=== PATIENT | female | born 1955 | race African-American/Black ===

== ENCOUNTER 2018-04-04 08:14 | Emergency (ER) | payer BC ==
[~2018-04-04] VITALS: Ht 167.6 cm; Wt 96.2 kg
--- OUTSIDE RECORDS SUMMARY | 2018-04-04 08:16 | XMS REPORT ---
Author Author [facility] Address Unknown Phone Unavailable Care Team Providers Care Flight Surveyor Name Role Phone SOCORRO VILLATORO Unavailable Unavailable Problems This patient has no known problems. Allergies, Adverse Reactions, Alerts This patient has no known allergies or adverse reactions. Medications This patient has no known medications. Results Test Description Test Time Test Comments Text Results Atomic Results Result Comments TISSUE EXAM 2018-01-24 14:16:00 Surgical Pathology Report Case: [id number] Authorizing Provider: Zahida Villatoro, Collected: 01/13/2018 1147 MD Ordering Location: [facility] PERIOPERATIVE Received: 01/13/2018 1226 SERVICES Pathologist: Aditi Mancera MD Specimen: Fem oral Head, Right Hip RIGHT FEMORAL HEAD, EXCISION: - DEGENERATIVE JOINT DISEASE/OSTEOARTHRITIS - FOCAL CONTIGUOUS AVASCULAR NECROSIS - REACTIVE SYNOVIUM WITH OSTEOCARTILAGINOUS LOOSE BODY, 1 MM Signing Pathologist Direct Phone Line: [phone] signed by Aditi Mancera MD on 01/24/2018 at 2:16 PMMO/[id number] osteoarthritis of right hipRight femoral head Specimen is received in a fluidless container labeled with the patient's information and labeled "right femoral head" and consists of a dangelo-red spherical femoral head measuring 4 x 3.5 x 3.5 cm with sharply amputated base. The articular surface has distinct osteophyte formation with pitting and eburnation, and the femoral head is slightly distorted.Section code: A1, A2, bone submitted for decalcification; A3, soft tissue and bone submitted for decalcification. CG/ew The right femoral head sample shows osteoporotic bone with hematopoietic marrow and without atypia. There are some degenerative/reactive changes along the articular cartilage/eburnated surfaces. However, along this region, as well, there are features typical of avascular necrosis with a homogenized marrow and necrotic and distorted bone trabecular elements. Atypia is not noted. There is some reactive synovium with an occasional osteocartilaginous loose body. BASIC METABOLIC PANEL 2018-01-15 07:00:00 SODIUM (BEAKER) (test fdnb=989) 141 meq/L 136-145 POTASSIUM (BEAKER) (test zicp=077) 3.7 meq/L 3.5-5.1 CHLORIDE (BEAKER) (test qpxp=843) 109 meq/L 98-107 CO2 (BEAKER) (test dxxz=417) 27 meq/L 22-29 BLOOD UREA NITROGEN (BEAKER) (test mhtk=288) 10 mg/dL 7-21 CREATININE (BEAKER) (test qriu=524) 0.71 mg/dL 0.57-1.25 GLUCOSE RANDOM (BEAKER) (test psaz=755) 101 mg/dL 70-105 CALCIUM (BEAKER) (test vzhc=029) 8.8 mg/dL 8.4-10.2 EGFR (BEAKER) (test oyip=9125) 101 mL/min/1.73 sq m ESTIMATED GFR IS NOT ACCURATE CREATININE CLEARANCE IN PREDICTING GLOMERULAR FILTRATION RATE. ESTIMATED GFR IS NOT APPLICABLE FOR DIALYSIS PATIENTS. HEMOGLOBIN AND [id number] 06:39:00* Test Item Value Reference Range Comments HEMOGLOBIN (BEAKER) (test hjqw=352) 9.9 GM/DL 11.2-15.7 HEMATOCRIT (BEAKER) (test xwnp=612) 31.4 % 34.1-44.9 BASIC METABOLIC [id number] 05:36:00* Test Item Value Reference Range Comments SODIUM (BEAKER) (test acrs=581) 137 meq/L 136-145 POTASSIUM (BEAKER) (test wtyq=269) 4.0 meq/L 3.5-5.1 CHLORIDE (BEAKER) (test kufv=194) 108 meq/L 98-107 CO2 (BEAKER) (test jtqe=544) 25 meq/L 22-29 BLOOD UREA NITROGEN (BEAKER) (test wbnz=347) 22 mg/dL 7-21 CREATININE (BEAKER) (test bslc=027) 0.74 mg/dL 0.57-1.25 GLUCOSE RANDOM (BEAKER) (test awfa=436) 109 mg/dL 70-105 CALCIUM (BEAKER) (test nreq=467) 8.6 mg/dL 8.4-10.2 EGFR (BEAKER) (test pocl=9822) 96 mL/min/1.73 sq m ESTIMATED GFR IS NOT ACCURATE CREATININE CLEARANCE IN PREDICTING GLOMERULAR FILTRATION RATE. ESTIMATED GFR IS NOT APPLICABLE FOR DIALYSIS PATIENTS. HEMOGLOBIN AND [id number] 05:09:00* Test Item Value Reference Range Comments HEMOGLOBIN (WIL) (test yvii=041) 10.5 GM/DL 11.2-15.7 HEMATOCRIT (WIL) (test xaci=772) 32.3 % 34.1-44.9 RAD, PELVIS, 1 OR 2 [id number] 13:51:00Reason for exam:->post op total hip in PACUShould this be performed at the bedside?->YesFINAL REPORT AP pelvis, HISTORY: Arthroplasty COMPARISON: 01/13/2018 IMPRESSION:Right hip arthroplasty in place. Suspect alignment. No fractures. Signed: Lashell Minorort Verified Date/Time: 01/13/2018 13:51:31 Reading Location: [facility] Reading Room , PELVIS, 1 OR 2 [id number] 12:20:00Reason for exam:->RIGHT TOTAL HIP REPLACEMENTShould this be performed at the bedside?->YesFINAL REPORT Radiograph of the right hip Reason for exam: RIGHT TOTAL HIP REPLACEMENT Comparison: No priors Discussion: Patient is undergoing right hip total arthroplasty. An acetabular component, and a right femoral reamer have been placed. Alignment is near- anatomic. No acute fracture. Signed: Luz Sullivan Verified Date/Time: 01/13/2018 12:20:24 Reading Location: [facility] Radiology Reading Room
--- OUTSIDE RECORDS SUMMARY | 2018-04-04 08:16 | XMS REPORT | Clinical Summary ---
Author Author [facility]LEY [employer] [facility] [employer] [facility] Address Unknown Phone Unavailable Care Team Providers Care Stone Operator Name Role Phone Pcp, No PCP Unavailable Allergies No Known Allergies Medications End Date Status Medication Sig Dispensed Refills Start Date Active B-complex with vitamin C Take 1 tablet 0 tablet by mouth daily. Active omega-3 fatty acids-fish Take 2 g by 0 oil 340-1,000 mg Cap per mouth 2 (two) capsule times daily. 01/13/2018 Discontinued traMADol (ULTRAM) 50 mg Take 50 mg by 0 tablet mouth every 6 (six) hours as needed for Pain. 01/13/2018 Discontinued acetaminophen (TYLENOL) Take 650 mg 0 325 MG tablet by mouth every 6 (six) hours as needed for Pain. 01/13/2018 Discontinued diclofenac (VOLTAREN) 75 Take 75 mg by 0 MG EC tablet mouth 2 (two) times daily. 02/12/2018 aspirin 325 MG EC tablet Take 1 tablet 30 tablet 0 (325 mg 8 total) by mouth daily for 30 days. 01/28/2018 HYDROcodone-acetaminophen Take 1 tablet 60 tablet 0 (NORCO 10-325) 10-325 mg by mouth 8 per tablet every 6 (six) hours as needed for up to 15 days. Max Daily Amount: 4 tablets Active Problems Problem Noted Date Primary osteoarthritis of right hip 01/13/2018 History of total right hip arthroplasty 01/13/2018 Encounters Care Team Description Date Type Specialty Aleyda Forrest MD 01/13/2018 Anesthesia Event Zahida Chino MD ARTHROPLASTY,HIP 01/13/2018 Surgery Zahida Chino MD 01/13/2018 [facility] General Internal Medicine - Encounter 01/15/2018 01/13/2018 Travel Resource, Opending sale to [facility] Preadmit Phone 01/12/2018 Hospital Pre-Admission Testing Encounter after 04/03/2017 Social History Date Tobacco Use Types Packs/Day Years Used Never Smoker Smokeless Tobacco: Never Used Alcohol Use Drinks/Week oz/Week Comments No Alcohol Habits Answer Date Recorded How often do you have a drink containing alcohol? Never 01/12/2018 How many drinks containing alcohol do you have on Not asked a typical day when you are drinking? How often do you have six or more drinks on one Not asked occasion? Sex Assigned at Date Recorded Not on file Industry Job Start Date Occupation Not on file Not on file Not on file Travel End Travel History Travel Start No recent travel history available. Last Filed Vital Signs Time Taken Vital Sign Reading 01/15/2018 11:20 AM CAREER GUIDANCE TECHNICIAN Blood Pressure 100/59 01/15/2018 11:20 AM CAREER GUIDANCE TECHNICIAN Pulse 91 01/15/2018 11:20 AM CAREER GUIDANCE TECHNICIAN Temperature 36.5 C (97.7 F) 01/15/2018 11:20 AM CAREER GUIDANCE TECHNICIAN Respiratory Rate 18 01/15/2018 11:20 AM CAREER GUIDANCE TECHNICIAN Oxygen Saturation 98% - Inhaled Oxygen - Concentration 01/13/2018 8:56 AM CAREER GUIDANCE TECHNICIAN Weight 97.8 kg (215 lb 9.6 oz) 01/13/2018 8:56 AM CAREER GUIDANCE TECHNICIAN Height 170.2 cm (5' 7") 01/13/2018 8:56 AM CAREER GUIDANCE TECHNICIAN Body Mass Index 33.77 Plan of Treatment Not on file Implants Device Identifier Shelf Expiration Date Model / Serial / Lot Implanted Type Area Manufactur er 09/16/2022 0822-2270 / / [id number] Scr Low Profile 6.5x25mm [id number] Fracture/F Right: Hip CRAIG:ST - [id number] ixation DAVID Implanted: Qty: 1 on 01/13/2018 by Zahida Shelton MD 08/01/2022 [id number] / / [id number] Scr Low Profile 6.5x20mm [id number] Fracture/F Right: Hip CRAIG:ST - [id number] ixation DAVID Implanted: Qty: 1 on 01/13/2018 by Zahida Shelton MD 11/02/2022 702-04-52E / / [id number] Trident Ii Tri Clusterhole 52e Joints Right: Hip CRAIG 702-04-52e - [id number] ORTHO CAP Implanted: Qty: 1 on 01/13/2018 by Zahida Chino MD 10/29/2022 623-00-36E / / [id number] Insrt Trident X3 0deg 36mm Joints Right: Hip CRAIG:ST 623-00-36e - [id number] DAVID Implanted: Qty: 1 on 01/13/2018 by Zahida Shelton MD 01/11/2022 [id number] / / [id number] Hip Stem Accolade Ii 127d 3 - Joints Right: Hip CRAIG:ST [id number] DAVID Implanted: Qty: 1 on 01/13/2018 by Zahida Shelton MD 10/28/2022 6570-0-136 / / [id number] Head Fem Ceramic V40 36mm Joints Right: Hip CRAIG:ST 6570-0-136 - [id number] DAVID Implanted: Qty: 1 on 01/13/2018 by Zahida Shelton MD Procedures Comments Procedure Name Priority Date/Time Associated Diagnosis RHYTHM STRIP - SCAN 01/23/2018 8:40 AM CAREER GUIDANCE TECHNICIAN HEMOGLOBIN AND HEMATOCRIT Routine 01/15/2018 6:19 AM CAREER GUIDANCE TECHNICIAN BASIC METABOLIC PANEL (7) Routine 01/15/2018 6:19 AM CAREER GUIDANCE TECHNICIAN TRANSFUSION SERVICE 01/14/2018 REPORT - SCAN 6:01 PM CAREER GUIDANCE TECHNICIAN HEMOGLOBIN AND HEMATOCRIT Routine 01/14/2018 4:46 AM CAREER GUIDANCE TECHNICIAN BASIC METABOLIC PANEL (7) Routine 01/14/2018 4:46 AM CAREER GUIDANCE TECHNICIAN XR PELVIS 1 OR 2 VIEWS STAT 01/13/2018 1:36 PM CAREER GUIDANCE TECHNICIAN XR PELVIS 1 OR 2 VIEWS Routine 01/13/2018 12:09 PM CAREER GUIDANCE TECHNICIAN TISSUE EXAM AP Routine 01/13/2018 11:47 AM CAREER GUIDANCE TECHNICIAN ARTHROPLASTY,HIP 01/13/2018 Primary osteoarthritis of 10:50 AM CAREER GUIDANCE TECHNICIAN right hip Special Needs (SPINAL EPIDURAL, CRAIG ACCOLADE 2) ANESTHESIA SPINAL BLOCK Routine 01/13/2018 10:44 AM CAREER GUIDANCE TECHNICIAN TYPE AND SCREEN, Routine 01/13/2018 AUTOMATED 9:15 AM CAREER GUIDANCE TECHNICIAN after 04/03/2017 Results * RHYTHM STRIP - SCAN (01/23/2018 8:40 AM CAREER GUIDANCE TECHNICIAN) Narrative Performed At * Hemoglobin and hematocrit (01/15/2018 6:19 AM CAREER GUIDANCE TECHNICIAN) Only the most recent of 2 results within the time period is included. Hemoglobin 9.9 (L) 11.2 - 15.7 GM/DL [facility] Hematocrit 31.4 (L) 34.1 - 44.9 % [facility] Specimen Blood Performing Organization Address City/State/Zipcode Phone Number [facility] [address] [place] [address] MEDICAL [facility]ENTER * Basic metabolic panel (01/15/2018 6:19 AM CAREER GUIDANCE TECHNICIAN) Only the most recent of 2 results within the time period is included. Sodium 141 136 - 145 meq/L [facility] Potassium 3.7 3.5 - 5.1 meq/L [facility] Chloride 109 (H) 98 - 107 meq/L [facility] CO2 27 22 - 29 meq/L [facility] BUN 10 7 - 21 mg/dL [facility] Creatinine 0.71 0.57 - 1.25 mg/dL [facility] Glucose 101 70 - 105 mg/dL [facility] Calcium 8.8 8.4 - 10.2 mg/dL [facility] EGFR 101Comment: ESTIMATED GFR IS mL/min/1.73 sq m [facility] NOT ACCURATE CREATININE [facility] CLEARANCE IN PREDICTING GLOMERULAR FILTRATION RATE. ESTIMATED GFR IS NOT APPLICABLE FOR DIALYSIS PATIENTS. Specimen Blood Performing Organization Address City/[facility]/Zipcode Phone Number [facility] [address] [place] [address] MEDICAL CENTER * TRANSFUSION SERVICE REPORT - SCAN (01/14/2018 6:01 PM CAREER GUIDANCE TECHNICIAN) Narrative Performed At * XR pelvis 1 or 2 views (01/13/2018 1:36 PM CAREER GUIDANCE TECHNICIAN) Only the most recent of 2 results within the time period is included. Narrative Performed At FINAL REPORT GE RIS AP pelvis, HISTORY: Arthroplasty COMPARISON: 01/13/2018 IMPRESSION: Right hip arthroplasty in place. Suspect alignment. No fractures. Signed: Lashell Minor MD Report Verified Date/Time:01/13/2018 13:51:31 Reading Location: [facility] Reading Room Procedure Note Interface, External Ris In - 01/13/2018 1:53 PM CAREER GUIDANCE TECHNICIAN FINAL REPORT AP pelvis, HISTORY: Arthroplasty COMPARISON: 01/13/2018 IMPRESSION: Right hip arthroplasty in place. Suspect alignment. No fractures. Signed: Lashell Minor MD Report Verified Date/Time: 01/13/2018 13:51:31 Reading Location: [facility] Reading Room Performing Organization Address City/[facility]/Zipcode Phone Number [facility] * Tissue Exam (01/13/2018 11:47 AM CAREER GUIDANCE TECHNICIAN) Case Report Surgical Pathology [facility] Report [facility] Case: [id number] Authorizing Provider:Zahida Chino, Collected: 01/13/2018 Mariel GERMAN Ordering Location: [facility] PERIOPERATIVE Received: 01/13/2018 1226 SERVICES Pathologist: Aditi Mancera MD Specimen:Femoral Head, Right Hip DIAGNOSIS RIGHT FEMORAL HEAD, EXCISION: [facility] - DEGENERATIVE JOINT [facility] DISEASE/OSTEOARTHRITIS - FOCAL CONTIGUOUS AVASCULAR NECROSIS - REACTIVE SYNOVIUM WITH OSTEOCARTILAGINOUS LOOSE BODY, 1 MM Signing Pathologist Direct Phone Line: [phone] CPT Code(s) MO/ew [facility] [id number] [facility] [id number] CLINICAL HISTORY Primary osteoarthritis of [facility] right hip [facility] SPECIMEN SOURCE Right femoral head [facility] GROSS DESCRIPTION Specimen is received in a [facility] fluidless container labeled [facility] with the patient's information and labeled "right femoral head" and consists of a dangelo-red spherical femoral head measuring 4 x 3.5 x 3.5 cm with sharply amputated base. The articular surface has distinct osteophyte formation with pitting and eburnation, and the femoral head is slightly distorted. Section code: A1, A2, bone submitted for decalcification; A3, soft tissue and bone submitted for decalcification. CG/ew MICROSCOPIC DESCRIPTION The right femoral head sample [facility] shows osteoporotic bone with [facility] hematopoietic marrow and without atypia. There are some degenerative/reactive changes along the articular cartilage/eburnated surfaces. However, along this region, as well, there are features typical of avascular necrosis with a homogenized marrow and necrotic and distorted bone trabecular elements. Atypia is not noted. There is some reactive synovium with an occasional osteocartilaginous loose body. Specimen Tissue - Femoral Head, Right Hip Performing Organization Address City/State/Zipcode Phone Number [facility] [address] [place] [address] [facility] * ANESTHESIA SPINAL BLOCK (01/13/2018 10:44 AM CAREER GUIDANCE TECHNICIAN) Narrative Performed At Saurabh Shaw MD 01/13/2018 10:54 AM Spinal Block Patient location during procedure: pre-procedure Start time: 01/13/2018 10:46 AM End time: 01/13/2018 10:48 AM Procedure Indication: at surgeon's request and primary anesthetic Staffing Anesthesiologist: Eric García MD Resident/HEEL SEAT POUNDER: Saurabh Shaw MD Preanesthetic Checklist Completed: patient identified, pre-op evaluation, timeout performed, IV checked, risks and benefits discussed, monitors and equipment checked, anesthesia consent given, prep site dry prior to draping and maximum sterile barriers were used: cap, mask, sterile gown, sterile gloves, and large sterile sheet Prep Prep: Betadine Procedures: sterile gloves, surgical mask and surgical hat Spinal Block Patient position: sitting Patient monitoring: EKG, HR, BP and SpO2 Approach: midlineNo pictures available Level:L4-5 Injection technique: single-shot Needle Needle type: short-bevel Needle gauge: 25 G Needle Length: 9 cm Used introducer Assessment Sensory level: T4 Additional Notes Dr. García was present for the procedure.Patient tolerated well with no immediate complications.No pain on injection or throughout procedure. Procedure Note Saurabh Shaw MD - 01/13/2018 10:44 AM CAREER GUIDANCE TECHNICIAN Spinal Block Patient location during procedure: pre-procedure Start time: 01/13/2018 10:46 AM End time: 01/13/2018 10:48 AM Procedure Indication: at surgeon's request and primary anesthetic Staffing Anesthesiologist: Eric García MD Resident/HEEL SEAT POUNDER: Saurabh Shaw MD Preanesthetic Checklist Completed: patient identified, pre-op evaluation, timeout performed, IV checked, risks and benefits discussed, monitors and equipment checked, anesthesia consent given, prep site dry prior to draping and maximum sterile barriers were used: cap, mask, sterile gown, sterile gloves, and large sterile sheet Prep Prep: Betadine Procedures: sterile gloves, surgical mask and surgical hat Spinal Block Patient position: sitting Patient monitoring: EKG, HR, BP and SpO2 Approach: midlineNo pictures available Level: L4-5 Injection technique: single-shot Needle Needle type: short-bevel Needle gauge: 25 G Needle Length: 9 cm Used introducer Assessment Sensory level: T4 Additional Notes Dr. García was present for the procedure. Patient tolerated well with no immediate complications. No pain on injection or throughout procedure. * Type and screen, automated (01/13/2018 9:15 AM CAREER GUIDANCE TECHNICIAN) ABO/RH AUTOMATED (BEAKER) O POSITIVE [facility] Ab Scrn NEGATIVE [facility] Specimen Blood Performing Organization Address City/State/Zipcode Phone Number [facility] [address] [place] [address] MEDICAL CENTER after 04/03/2017 Insurance Payer Benefit Subscriber ID Type Phone Address Plan / Group BLUE CROSS/BLUE [employer]IELD BCBS HMO xxxxxxxxxxxx HMO/POS [phone] [address] [place] [address] TIA Advance Directives For more information, please contact: [facility] [address] [place] [address] Date Inactivated Comments Code Status Date Activated Full Code 01/13/2018 8:55 AM This code status was determined by: Patient
[2018-04-04] MEDS ORDERED: ASPIRIN 81 MG CHEW TAB PO ONE (09:00)
[2018-04-04] MEDS ORDERED: MAGNESIUM/ALUMINUM/SIMETHICONE 30 ML UDC PO ONE (09:00)
[2018-04-04] MEDS ORDERED: LIDOCAINE VISC 2% SOLN 15 ML UDC PO ONE (09:00)
[2018-04-04 09:03] LABS: INR 0.91; PROTHROMBIN TIME 13.1 seconds (11.9-14.5)
[2018-04-04 09:04] LABS: PARTIAL THROMBOPLASTIN TIME 22.4 seconds (23.8-35.5)
[2018-04-04] MEDS ORDERED: BELLADONNA ALK/PHENOBARBITAL 5 ML UDC PO ONE (09:30)
[2018-04-04 09:31] LABS: CLARITY,URINE CLOUDY (CLEAR); COLOR,URINE YELLOW (YELLOW)
[2018-04-04 09:32] LABS: BACTERIA,URINE MANY /HPF; BILIRUBIN,URINE NEGATIVE (NEGATIVE); EPITHELIAL CELLS,URINE MODERATE /LPF; KETONES,URINE NEGATIVE (NEGATIVE); LEUKOCYTE ESTERASE ,URINE TRACE (NEGATIVE); NITRITE,URINE NEGATIVE (NEGATIVE); PROTEIN,URINE DIPSTICK NEGATIVE (NEGATIVE); URINE UROBILINOGEN 0.2 mg/dL (0.2 - 1)
[2018-04-04 09:47] LABS: BASOPHILS % 1.4 % (0.0-1.0); EOSINOPHILS # (AUTO) 0.1 (0.0-0.4); EOSINOPHILS % 2.5 % (0.0-6.0); HEMATOCRIT 40.3 % (34.2-44.1); HEMOGLOBIN 12.7 g/dL (12.0-16.0); LYMPHOCYTES % 35.3 % (18.0-39.1); MEAN CORPUSCULAR HGB CONC 31.5 g/dL (31-35); MEAN CORPUSCULAR VOLUME 88.8 fL (81-99); MONOCYTES # (AUTO) 0.2 (0.2-0.8); MONOCYTES % 8.1 % (4.4-11.3); NEUTROPHILS # (AUTO) 1.5 (2.1-6.9); NEUTROPHILS % 52.7 % (38.7-80.0); PLATELET COUNT 189 x10e3/uL (140-360); RED BLOOD COUNT 4.54 x10e6/uL (3.6-5.1); RED CELL DISTRIBUTION WIDTH 13.8 % (11.7-14.4)
[2018-04-04 10:05] LABS: AMYLASE 122 U/L (25-125); LIPASE 14 U/L (8-78)
[2018-04-04 10:07] LABS: ALANINE AMINOTRANSFERASE 14 IU/L (0-55); ALBUMIN 3.6 g/dL (3.5-5.0); ALBUMIN/GLOBULIN RATIO 1.2 (0.8-2.0); ALKALINE PHOSPHATASE 81 IU/L (40-150); BLOOD UREA NITROGEN 14 mg/dL (7-26); BUN/CREATININE RATIO 16 (6-25); CALCIUM 9.7 mg/dL (8.4-10.2); CARBON DIOXIDE 31 mmol/L (22-29); CHLORIDE 103 mmol/L (98-107); CREATINE KINASE 163 IU/L (29-168); CREATININE, SERUM 0.85 mg/dL (0.57-1.11); EST GLOMERULAR FILTRATION RATE > 60 ML/MIN (60-); GLUCOSE 88 mg/dL (74-118); SODIUM 138 mmol/L (136-145)
--- NOTE | 2018-04-04 10:34 | Diagnostic Imaging Report ---
EXAM: CHEST SINGLE (PORTABLE), AP Portable DATE: 04/04/19 Time stamp on exam: 9:20 AM INDICATION: Chest pain COMPARISON: None FINDINGS: LINES/TUBES: None LUNGS: No consolidations or edema. PLEURA: No effusions or pneumothorax. HEART AND MEDIASTINUM: Normal size and contour. BONES AND SOFT TISSUES: No acute findings. IMPRESSION: No acute thoracic abnormality. Signed by: Dr. Zhang Leach DO on 04/04/2018 10:30 AM
== END 2018-04-04 11:14 | disposition home or self-care (01) ==
LOC: ER 08:14
DX: R10.11 Right upper quadrant pain (principal); R10.13 Epigastric pain; R11.0 Nausea; R19.7 Diarrhea, unspecified; K29.00 Acute gastritis without bleeding; N30.90 Cystitis, unspecified without hematuria
CPT/HCPCS: 36415; 71045; 80053; 81001; 82150; 82550; 82553; 83690; 83880; 84484; 85025; 85610; 85730; 93005; 99284

== ENCOUNTER 2021-11-17 05:51 | Emergency (ER) | payer BC ==
[~2021-11-17] VITALS: Ht 167.6 cm; Wt 96.2 kg
[2021-11-17] MEDS ORDERED: ONDANSETRON HCL INJ 2MG/ML 2ML 2 MG/ML VIAL IV STA (06:08)
[2021-11-17] MEDS ORDERED: KETOROLAC TROMETHAMINE 30 MG/ML VIAL IV STA (06:08)
[2021-11-17] MEDS ORDERED: SODIUM CHLORIDE 0.9% 1000ML 1,000 ML IV SCH (06:15)
[2021-11-17] MEDS ORDERED: ACETAMINOPHEN 325 MG TAB PO ONE (06:15)
[2021-11-17 06:36] LABS: BASOPHILS % 0.4 % (0.0-1.0); HEMATOCRIT 43.3 % (34.2-44.1); HEMOGLOBIN 14.6 g/dL (12.0-16.0); LYMPHOCYTES # (AUTO) 0.6 (1.0-3.2); LYMPHOCYTES % 7.3 % (18.0-39.1); MEAN CORPUSCULAR HEMOGLOBIN 28.7 pg (28-32); MEAN CORPUSCULAR HGB CONC 33.7 g/dL (31-35); MEAN CORPUSCULAR VOLUME 85.2 fL (81-99); MONOCYTES # (AUTO) 0.5 (0.2-0.8); NEUTROPHILS # (AUTO) 7.1 (2.1-6.9); NEUTROPHILS % 85.8 % (38.7-80.0); PLATELET COUNT 173 x10e3/uL (140-360); RED BLOOD COUNT 5.08 x10e6/uL (3.6-5.1); RED CELL DISTRIBUTION WIDTH 13.1 % (11.7-14.4)
[2021-11-17 06:59] LABS: ALBUMIN 3.4 g/dL (3.5-5.0); ALBUMIN/GLOBULIN RATIO 0.7 (0.8-2.0); CALCIUM 9.9 mg/dL (8.4-10.2); CREATININE, SERUM 1.21 mg/dL (0.57-1.11)
[2021-11-17] MEDS ORDERED: DOXYCYCLINE HY100 MG PO (07:22)
[2021-11-17] MEDS ORDERED: AMOX TR-K CLV1 EAC2 PO (07:22)
== END 2021-11-17 08:18 | disposition home or self-care (01) ==
LOC: ER 05:58
DX: R50.9 Fever, unspecified (principal); J18.9 Pneumonia, unspecified organism; R51.9 Headache, unspecified; Z20.822 Contact with and (suspected) exposure to COVID-19
CPT/HCPCS: 36415; 71045; 80053; 85025; 87400; 99284; J1885; J2405; J7030; U0002